=== PATIENT | female | born 1995 | race American Indian/Alaskan Native ===

== ENCOUNTER 2018-07-01 17:34 | Emergency (ER) | payer MEDICAID, OTHER ==
--- NOTE | 2018-07-01 18:06 | Emergency Department Report ---
Blank Doc - Documentation Documentation: This is a 23-year-old female that presents with nausea vomiting with some pelvic pressure. Denies any pain. Denies other symptoms. This initial assessment/diagnostic orders/clinical plan/treatment(s) is/are subject to change based on patient's health status, clinical progression and re- assessment by fellow clinical providers in the ED. Further treatment and workup at subsequent clinical providers discretion. Patient/guardians urged not to elope from the ED as their condition may be serious if not clinically assessed and managed. Initial orders include: 1- Patient sent to [facility] for further evaluation and treatment
[2018-07-01 18:07] VITALS: BP 109/61
[2018-07-01 18:32] LABS: Basophils # (Auto) 0.1 K/mm3 (0.0-0.1); Eosinophils # (Auto) 0.2 K/mm3 (0.0-0.4); Eosinophils % (Auto) 3.3 % (0.0-4.3); Hematocrit 36.1 % (30.3-42.9); Hemoglobin 11.9 gm/dl (10.1-14.3); Lymphocytes # (Auto) 2.8 K/mm3 (1.2-5.4); Lymphocytes % (Auto) 44.6 % (13.4-35.0); Mean Corpuscular HGB Conc 33 % (30-34); Mean Corpuscular Volume 87 fl (79-97); Monocytes # (Auto) 0.6 K/mm3 (0.0-0.8); Monocytes % (Auto) 10.1 % (0.0-7.3); Platelet Count 175 K/mm3 (140-440); Red Blood Count 4.17 M/mm3 (3.65-5.03); Red Cell Distribution Width 14.5 % (13.2-15.2)
[2018-07-01 18:52] LABS: BUN/Creatinine Ratio 14; Blood Urea Nitrogen 10 mg/dL (7-17); Calcium 8.6 mg/dL (8.4-10.2); Hemolysis Index 12
--- NOTE | 2018-07-01 19:56 | Emergency Department Report ---
ED Female HPI - General Chief complaint: Abdominal Pain Stated complaint: ABD PAIN/PREG Time Seen by Provider: 07/01/18 18:03 Source: patient Mode of arrival: Ambulatory Limitations: No Limitations - History of Present Illness Initial comments: Pt is a 23 yo female who presents to the ED with c/o N/V over the last couple of days. She also has suprapubic pressure. She denies any vaginal bleeding, abdominal pain, diarrhea, fever, or any other sx. She states she has had a small amount of clear/white discharge. She denies any itching, burning, or foul odor. Pt states she took an at home test which was positive. Including this she is /A3 LNMP 05/25/18 Complaint: other (pelvic pressure ) Onset/Timin -: week(s) Location: suprapubic Radiation: non-radiating Severity scale (0 -10): 0 (pressure) Are you Now?: Yes Last Menstrual Period: 05/25/18 EDC: 03/01/19 Associated Symptoms: vaginal discharge, nausea/vomiting. denies: vaginal bleeding, abdominal pain, fever/chills, headaches, loss of appetite, dysuria, hematuria, rash, seizure, shortness of breath, syncope, weakness - Related Data Sexually active: Yes : 4 Para: 0 A: 3 Previous Rx's Medication Instructions Recorded Last Taken Type Pnv No.121/Iron/Folic Acid 1 each PO DAILY #30 tablet 07/01/18 Unknown Rx [ Multivitamin Tablet] Allergies Allergy/AdvReac Type Severity Reaction Status Date / Time No Known Allergies Allergy Unverified 07/01/18 17:37 ED Review of Systems ROS: Stated complaint: ABD PAIN/PREG Other details as noted in HPI Comment: All other systems reviewed and negative ED Past Medical Hx - Past Medical History Previous Medical History?: No - Surgical History Past Surgical History?: No - Social History Smoking Status: Never Smoker Substance Use Type: None - Medications Home Medications: Home Medications Medication Instructions Recorded Confirmed Last Taken Type Pnv No.121/Iron/Folic Acid 1 each PO DAILY #30 tablet 07/01/18 Unknown Rx [ Multivitamin Tablet] ED Physical Exam - General Limitations: No Limitations General appearance: alert, in no apparent distress - Head Head exam: Present: atraumatic, normocephalic - Eye Eye exam: Present: normal appearance - ENT ENT exam: Present: mucous membranes moist - Neck Neck exam: Present: normal inspection - Respiratory Respiratory exam: Absent: respiratory distress - Cardiovascular Cardiovascular Exam: Present: regular rate - GI/Abdominal GI/Abdominal exam: Present: soft, normal bowel sounds. Absent: distended, tenderness, guarding, rebound, rigid - Neurological Exam Neurological exam: Present: alert, oriented X3 - Psychiatric Psychiatric exam: Present: normal mood ED Course Vital Signs 07/01/18 18:04 Temperature 98 F Pulse Rate 66 Respiratory 18 Rate Blood Pressure 109/61 O2 Sat by Pulse 100 Oximetry ED Medical Decision Making - Lab Data Result diagrams: 07/01/18 18:16 07/01/18 18:16 Laboratory Results - last 24 hr 07/01/18 07/01/18 07/01/18 18:16 18:16 18:16 WBC 6.3 RBC 4.17 Hgb 11.9 Hct 36.1 MCV 87 MCH 29 MCHC 33 RDW 14.5 Plt Count 175 Lymph % (Auto) 44.6 H [place] % (Auto) 10.1 H Eos % (Auto) 3.3 Baso % (Auto) 1.0 Lymph # 2.8 Garrett # 0.6 Eos # 0.2 Baso # 0.1 Seg Neutrophils % 41.0 Seg Neutrophils # 2.6 Sodium 137 Potassium 4.4 Chloride 100.9 Carbon Dioxide 24 Anion Gap 17 BUN 10 Creatinine 0.7 Estimated GFR > 60 BUN/Creatinine Ratio 14 Glucose 85 Calcium 8.6 HCG, Quant 493.0 H - Medical Decision Making Pt is a 23 yo female /A3, presents for N/V, pelvic pressure after taking at home test which was positive per pt. Denies any other sx, no abdominal pain, no vaginal bleeding, no urinary sx. Hcg quant is +. Advised pt to follow up with OB or with health clinic in the next two days to repeat hcg quant and for care. Will give prescription for vitamins. Critical care attestation.: If time is entered above; I have spent that time in minutes in the direct care of this critically ill patient, excluding procedure time. ED Disposition Clinical Impression: Qualifiers: Weeks of gestation: less than 8 weeks Qualified Code(s): Z3A.01 - Less than 8 weeks gestation of Disposition: DC-01 TO HOME OR SELFCARE Is pt being admited?: No Does the pt Need Aspirin: No Condition: Stable Instructions: (ED), Morning Sickness (ED) Additional Instructions: Follow up with OB or health clinic in the next two days to repeat your hcg quant and for care. Take vitamins as directed. Return to ED if new or worsening sx. Prescriptions: Pnv No.121/Iron/Folic Acid [ Multivitamin Tablet] 1 each PO DAILY #30 tablet Referrals: OLAYINKA CAMARGO MD [Staff Physician] - 3-5 Days Time of Disposition: 20:03 Print Language: VIET[place]ESE
== END 2018-07-01 20:09 | disposition home or self-care (01) ==
LOC: ED 17:34
DX: O21.8 Other vomiting complicating pregnancy (principal); O26.891 Other specified pregnancy related conditions, first trimester; R10.2 Pelvic and perineal pain; Z3A.01 Less than 8 weeks gestation of pregnancy
CPT/HCPCS: 36415; 80048; 84702; 85025

== ENCOUNTER 2019-03-09 22:00 | Inpatient (IN) | payer MEDICAID ==
[2019-03-09] MEDS ORDERED: BUTORPHANOL 2 MG/1 ML INJ IV PRN (22:58)
[2019-03-09] MEDS ORDERED: AMPICILLIN/NS 2 GM/100 ML 2 GM/100 ML BAG IV ONE (22:58)
[2019-03-09] MEDS ORDERED: fentaNYL 100 MCG/2 ML INJ IV PRN (22:59)
[2019-03-09] MEDS: LACTATED RINGERS 1,000 ML IV SCH (23:00)
[2019-03-09] MEDS ORDERED: LACTATED RINGERS 1,000 ML IV SCH ×2 (23:45)
[2019-03-10] MEDS: LACTATED RINGERS 1,000 ML IV SCH (02:00)
[2019-03-10] MEDS ORDERED: ePHEDrine SULFATE 50 MG/1 ML INJ ONE (02:02)
[2019-03-10] MEDS ORDERED: BUPIVACAINE/PF (0.25%) 2.5 MG/ML 10 ML VIAL INFILTRATI ONE (02:30)
[2019-03-10] MEDS ORDERED: ePHEDrine SULFATE 50 MG/1 ML INJ IV PRN (02:49)
[2019-03-10] MEDS ORDERED: NALOXONE 2 MG/2 ML INJ IV PRN (02:49)
--- NOTE | 2019-03-10 02:49 | Anesthesia Consultation ---
Anesthesia Consult and Med Hx Date of service: 03/10/19 - Airway Anesthetic Teeth Evaluation: Good ROM Head & Neck: Adequate Mental/Hyoid Distance: Adequate Mallampati Class: Class II Intubation Access Assessment: Good - Pulmonary Exam CTA: Yes - Cardiac Exam Cardiac Exam: RRR - Pre-Operative Health Status ASA Pre-Surgery Classification: ASA2, Emergency Proposed Anesthetic Plan: Epidural - Pulmonary Hx Smoking: No Hx Asthma: No Hx Respiratory Symptoms: No SOB: No COPD: No Hx Pneumonia: No Hx Sleep Apnea: No - Cardiovascular System Hx Hypertension: No Hx Coronary Artery Disease: No Hx Heart Attack/AMI: No Hx Angina: No Hx Percutaneous Transluminal Coronary Angioplasty (PTCA): No Hx Cardia Arrhythmia: No Hx Pacemaker: No Hx Internal Defibrillator: No Hx Valvular Heart Disease: No Hx Heart Murmur: No Hx Peripheral Vascular Disease: No - Central Nervous System Hx Neuromuscular Disorder: No Hx Seizures: No CVA: No Hx Back Pain: No Hx Psychiatric Problems: No - Gastrointestinal Hx Ulcer: No Hx Gastroesophageal Reflux Disease: No - Endocrine Hx Renal Disease: No Hx End Stage Renal Disease: No Hx Cirrhosis: No Hx Liver Disease: No Hx Insulin Dependent Diabetes: No Hx Non-Insulin Dependent Diabetes: No Hx Thyroid Disease: No Hx Hypothyroidism: No Hx Hyperthyroidism: No - Hematic Hx Anemia: No Hx Sickle Cell Disease: No - Other Systems Hx Alcohol Use: No Hx Substance Use: No Hx Cancer: No Hx Obesity: No
[2019-03-10] MEDS ORDERED: AMPICILLIN/NS 1 GM/50 ML 1 GM/50 ML BAG IV SCH (03:00)
[2019-03-10] MEDS ORDERED: fentaNYL-BUPIV 2 MCG/ML-0.125% 200 MCG/100 ML BAG EPIDURAL SCH (03:00)
[2019-03-10 03:38] LABS: Amorphous Crystals,Urine 1+; Bacteria,Urine 1+ /HPF (Negative); Bilirubin,Urine NEG (Negative); Blood,Urine NEG (Negative); Color,Urine Yellow (Yellow); Mucus,Urine FEW /HPF; Urobilinogen,Urine < 2.0 mg/dL (<2.0)
[2019-03-10 03:44] LABS: Hepatitis C Virus Antibody Non-Reactive (NonReactive)
[2019-03-10 03:50] LABS: Basophils % (Auto) 0.3 % (0.0-1.8); Eosinophils # (Auto) 0.1 K/mm3 (0.0-0.4); Eosinophils % (Auto) 0.9 % (0.0-4.3); Hematocrit 29.5 % (30.3-42.9); Hemoglobin 9.5 gm/dl (10.1-14.3); Lymphocytes # (Auto) 2.1 K/mm3 (1.2-5.4); Lymphocytes % (Auto) 30.7 % (13.4-35.0); Mean Corpuscular HGB Conc 32 % (30-34); Mean Corpuscular Volume 82 fl (79-97); Monocytes # (Auto) 0.7 K/mm3 (0.0-0.8); Monocytes % (Auto) 9.5 % (0.0-7.3); Platelet Count 155 K/mm3 (140-440); Red Cell Distribution Width 14.6 % (13.2-15.2)
[2019-03-10] MEDS ORDERED: MINERAL OIL 30 ML ORAL LIQD PO ONE (04:27)
[2019-03-10 04:53] LABS: Amphetamine Screen,Urine PRESUMPTIVE NEGATIVE; Benzodiazepines Screen,Urine PRESUMPTIVE NEGATIVE; Cannabinoid Screen,Urine PRESUMPTIVE NEGATIVE; Cocaine Screen,Urine PRESUMPTIVE NEGATIVE; Methadone Screen,Urine PRESUMPTIVE NEGATIVE; Opiate Screen,Urine PRESUMPTIVE NEGATIVE
--- NOTE | 2019-03-10 04:57 | History and Physical Report ---
History of Present Illness Date of examination: 03/10/19 Date of admission: 03/09/19 23:19 Chief complaint: 39 wk ; Active labor History of present illness: 23 yo, , pt of [employer]. Her records are not available. She reports she is currently 39.5 wks, giving an GERMAN of 03/12/2019. She reports she had a cerclage placed early in that was removed on 02/22/2019. She states that she was seen in the office yesterday and was told by the provider that she was 5 cm dilated. She reports that she began to have painful ctxs late last night and presented to [facility]. SROM occured after presenting to triage. She reports positve FM. Denies any VB. Past History Social history: full code - Obstetrical History Expected Date of Delivery: 03/12/19 Actual Gestation: 39 Week(s) 5 Day(s) : 4 Para: 0 Hx # Term Pregnancies: 0 Number of Pregnancies: 1 Spontaneous Abortions: 2 Induced : 0 Number of Living Children: 0 Medications and Allergies Allergies Allergy/AdvReac Type Severity Reaction Status Date / Time amoxicillin Allergy Rash Verified 03/10/19 02:51 Home Medications Medication Instructions Recorded Confirmed Last Taken Type Pnv No.121/Iron/Folic Acid 1 each PO DAILY #30 tablet 07/01/18 Unknown Rx [ Multivitamin Tablet] Active Meds: Active Medications Butorphanol Tartrate (Stadol) 2 mg IV Q2H PRN PRN Reason: Labor Pain Ephedrine Sulfate (Ephedrine Sulfate) 10 mg IV Q2M PRN PRN Reason: Hypotension Fentanyl (Sublimaze) 100 mcg IV Q2H PRN PRN Reason: Labor Pain Last Admin: 03/10/19 01:00 Dose: 100 mcg Documented by: Fentanyl/Bupivacaine/Sodium Chlor (Fentanyl-Bupiv 2 Mcg/Ml-0.125%) 200 mcg in 100 mls @ 12 mls/hr EPIDURAL TITR KLAUDIA; Protocol Last Admin: 03/10/19 03:31 Dose: 12 mls/hr Documented by: Lactated Ringer's (Lactated Ringers) 1,000 mls @ 125 mls/hr IV DIRECT KLAUDIA Last Admin: 03/10/19 02:00 Dose: 125 mls/hr Documented by: Clindamycin HCl (Cleocin 900 Mg/50 Ml) 900 mg in 50 mls @ 100 mls/hr IV Q8H KLAUDIA; Protocol Last Admin: 03/10/19 04:10 Dose: 100 mls/hr Documented by: Oxytocin/Sodium Chloride (Pitocin/Ns 20 Unit/1000ml Drip) 20 units in 1,000 mls @ 125 mls/hr IV DIRECT KLAUDIA Naloxone HCl (Naloxone) 0.2 mg IV Q5M PRN PRN Reason: Respiratory sedation Review of Systems All systems: negative Genitourinary: contractions - Vital Signs Vital signs: Vital Signs Pulse BP Pulse Ox 195 H 139/90 98 03/09/19 22:32 03/09/19 22:32 03/09/19 22:32 Temp Pulse Resp BP Pulse Ox 97.6 F 97 H 18 130/79 98 03/10/19 02:50 03/10/19 04:47 03/09/19 22:33 03/10/19 04:36 03/10/19 04:47 - Physical Exam Breasts: Positive: normal Cardiovascular: Regular rate Lungs: Positive: Normal air movement Abdomen: Positive: other (gravid) Genitourinary (Female): Positive: normal external genitalia, normal perenium Vagina: Positive: other (clear fluids) Uterus: Positive: enlarged (S=D) Deep Tendon Reflex Grade: Normal +2 - Obstetrical FHR: category 1 Uterine Contraction Monitor Mode: External Cervical Dilatation: 6 Cervical Effacement Percentage: 90 station: -1 Uterine Contraction Frequency (min): 2 Uterine Contraction Pattern: Regular Uterine Tone Measurement Phase: Resting Uterine Contraction Intensity: Strong/Firm Results Result Diagrams: 03/09/19 22:52 Abnormal lab results 03/09/19 03/09/19 Range/Units 22:52 23:23 RBC 3.60 L (3.65-5.03) M/mm3 Hgb 9.5 L (10.1-14.3) gm/dl Hct 29.5 L (30.3-42.9) % MCH 27 L (28-32) pg [place] % (Auto) 9.5 H (0.0-7.3) % Urine WBC (Auto) 7.0 H (0.0-6.0) /HPF All other labs normal. Assessment and Plan - Patient Problems (1) 39 weeks gestation of Current Visit: Yes Status: Acute Plan to address problem: Admit to L & D Expectant labor management GBS prophylaxis (status unknown) Pain meds as desired Anticipate (2) GBS screening not performed Current Visit: Yes Status: Acute Plan to address problem: GBS prophylaxis per protocol
[2019-03-10] MEDS ORDERED: OXYTOCIN 20 UNIT/1000ML DRIP 20 UNITS/1,000 ML BAG IV SCH (05:00)
[2019-03-10] MEDS ORDERED: PROMETHAZINE 25 MG RECT SUPP PR PRN (05:56)
[2019-03-10] MEDS ORDERED: WITCH HAZEL/ GLYCERIN PAD TP PRN (05:56)
[2019-03-10] MEDS ORDERED: diphenhydrAMINE 25 MG CAP PO PRN (05:56)
[2019-03-10] MEDS ORDERED: LANOLIN/ZINC/DIMETHICONE (LANSINOH) 7 GM TP PRN (05:56)
[2019-03-10] MEDS ORDERED: PROMETHAZINE 25 MG TAB PO PRN (05:56)
[2019-03-10] MEDS ORDERED: oxyCODONE /ACETAMINOPHEN 5-325MG TAB PO PRN (05:56)
[2019-03-10] MEDS ORDERED: ONDANSETRON 4 MG/2 ML INJ IV PRN (05:56)
[2019-03-10] MEDS ORDERED: MAGNESIUM HYDROXIDE (MOM) ORAL LIQD UDC PO PRN (05:56)
--- NOTE | 2019-03-10 06:11 | Procedure Note ---
OB Delivery Note - Delivery Date of Delivery: 03/10/19 (1754) Surgeon: YAKELIN TERRELL (CNM) Estimated blood loss: 300cc - Vaginal Delivery position: OA (LORENA, with compound hand) Delivery induction: none Delivery monitor: external FHT, external uterine Route of delivery: Delivery placenta: spontaneous (05) Delivery cord: 3 umbilical vessels Episiotomy: none Delivery laceration: other (bilateral labial ) Delivery repair: vicryl (3.0 on ) Anesthesia: epidural Delivery comments: of viable, alert, quiet famale . Cried immediately after delivery with drying and warm blanket. Placed directly to maternal abdomen. Cord double clamped and cut by FOB after cessation of pulsation. Placenta spontaneously delivered, Dennis, disposed per hospital policy. Uterus firm @ U-3. Bilateral inner labial lacerations noted, repaired, hemostasis maintained. Mother and baby safe, stable and bonding well. - A at 1 minute: 8 at 5 minutes: 9 Infant Gender: Female (Weight: 3444 gms (7 lbs 9 ozs) 19.5 inches)
[2019-03-10] MEDS: IBUPROFEN 600 MG TAB PO SCH ×5 (06:38→23:51)
[2019-03-10] MEDS: FERROUS SULFATE 325 MG TAB PO SCH ×2 (09:26→23:50)
[2019-03-10] MEDS: PRENATAL VIT27-FE FUMARATE-FOLIC ACID VIT TAB PO SCH (09:27)
[2019-03-10 19:03] LABS: Hemoglobin 8.1 gm/dl (10.1-14.3)
[2019-03-11] MEDS: IBUPROFEN 600 MG TAB PO SCH ×3 (05:58→17:23)
[2019-03-11] MEDS: PRENATAL VIT27-FE FUMARATE-FOLIC ACID VIT TAB PO SCH (10:00)
[2019-03-11] MEDS: FERROUS SULFATE 325 MG TAB PO SCH (10:00)
--- NOTE | 2019-03-11 10:37 | Progress Note ---
Assessment and Plan A: PPD#1 s/p Asymptomatic Anemia Stable P: Routine PP care Anticipate discharge home in 24-48 hours Subjective - Subjective Date of service: 03/11/19 Principal diagnosis: PPD#1 s/p 03/10/19 Patient reports: appetite normal, voiding normally, pain well controlled, flatus, ambulating normally, no bowel movement [place]: doing well, other (breast/bottle) Objective - Vital Signs Latest vital signs: Vital Signs Temp Pulse Resp BP 03/11/19 08:03 97.8 F 69 18 117/65 03/11/19 04:00 98.8 F 66 18 118/79 03/11/19 00:00 98.7 F 71 18 119/73 03/10/19 15:55 98.2 F 85 18 122/64 03/10/19 12:05 98 F 95 H 18 133/71 Intake and Output 03/10/19 03/11/19 03/11/19 23:59 07:59 15:59 Intake Total 120 480 Balance 120 480 Intake: Oral 120 480 Other: Total, Intake Amount 120 480 # Voids Void 1 1 - Exam Breasts: Present: normal, Cardiovascular: Present: Regular rate, Normal S1, Normal S2, No murmurs Lungs: Present: Clear to auscultation, Normal air movement Abdomen: Present: normal appearance, soft, normal bowel sounds. Absent: distention Vulva: both: normal Uterus: Present: firm, fundal height at umbilicus Extremities: Present: normal Deep Tendon Reflex Grade: Normal +2 - Labs Labs: Abnormal lab results 03/10/19 Range/Units 18:31 Hgb 8.1 L (10.1-14.3) gm/dl Hct 25.0 L (30.3-42.9) %
--- NOTE | 2019-03-11 10:38 | Discharge Summary ---
Providers - Providers Date of Admission: 03/09/19 23:19 Date of discharge: 03/12/19 Attending physician: OLAYINKA CAMARGO Primary care physician: OLAYINKA CAMARGO Hospitalization Reason for admission: active labor, IUP at term Delivery: Procedure details: See H&P and delivery note Episiotomy: none Laceration: other (labial) Other procedures: none complications: none Discharge diagnosis: IUP at term delivered baby: female Condition at discharge: Good Disposition: DC-01 TO HOME OR SELFCARE Plan - Provider Discharge Summary Activity: routine, no sex for 6 weeks, no heavy lifting 4 weeks, no strenuous exercise Diet: routine Instructions: routine Additional instructions: [] Smoking cessation referral if applicable(refer to patient education folder for contact #) [] Refer to [facility]'s [facility] Booklet Call your doctor immediately for: * Fever > 100.5 * Heavy vaginal bleeding ( >1 pad per hour) * Severe persistent headache * Shortness of breath * Reddened, hot, painful area to leg or breast * Drainage or odor from incision. * Keep incision clean and dry at all times and follow doctor's instructions regarding bathing/showering - Follow up plan Follow up: OLAYINKA CAMARGO MD [Primary Care Provider] - 6 Weeks
[2019-03-12] MEDS: IBUPROFEN 600 MG TAB PO SCH (05:53)
[2019-03-12 07:47] LABS: HIV-1 Antibody Differentiation SEE SCANNED RESULT; HIV-2 Antibody Differentiation SEE SCANNED RESULT
[2019-03-12] MEDS: PRENATAL VIT27-FE FUMARATE-FOLIC ACID VIT TAB PO SCH (10:00)
[2019-03-12] MEDS: FERROUS SULFATE 325 MG TAB PO SCH (15:53)
[2019-03-12 18:30] VITALS: BP 126/88
== END 2019-03-12 19:55 | disposition home or self-care (01) | DRG 775 ==
LOC: TRG 22:00 → LD 23:19 → OB 03-10 07:54
PROVIDERS: ADMIT Obstetrics & Gynecology; ATTEND Obstetrics & Gynecology
PROC: 10E0XZZ Delivery of Products of Conception, External Approach (ICD-10-PCS; principal; 2019-03-10)
PROC: 0UQMXZZ Repair Vulva, External Approach (ICD-10-PCS; 2019-03-10)
PROC: 3E0R3BZ Introduction of Anesthetic Agent into Spinal Canal, Percutaneous Approach (ICD-10-PCS; 2019-03-10)
PROC: 00HU33Z Insertion of Infusion Device into Spinal Canal, Percutaneous Approach (ICD-10-PCS; 2019-03-10)
DX: O70.0 First degree perineal laceration during delivery (principal); O90.81 Anemia of the puerperium; D64.9 Anemia, unspecified; Z3A.39 39 weeks gestation of pregnancy; Z37.0 Single live birth
CPT/HCPCS: 36415; 80307; 81001; 85014; 85018; 85025; 85660; 86592; 86689; 86706; 86762; 86803; 86850; 86900; 86901; G0378; J0290; J2590; J3010; J7120